=== PATIENT | female | born 1945 | race Caucasian/White ===

== ENCOUNTER 2021-12-31 09:24 | Outpatient (CLI) | payer MEDICARE | END 2021-12-31 09:25 | disposition home or self-care (01) | LOC: CSHULT 09:24 | PROVIDERS: ATTEND Family Medicine | DX: T14.90XA Injury, unspecified, initial encounter (principal); I82.412 Acute embolism and thrombosis of left femoral vein ==

== ENCOUNTER 2021-12-31 11:42 | Emergency (ER) | payer MEDICARE | END 2021-12-31 13:49 | disposition home or self-care (01) | LOC: CSHERS 11:42 | DX: I82.412 Acute embolism and thrombosis of left femoral vein (principal) | CPT/HCPCS: 99283 ==